=== PATIENT | female | born 1975 ===

== ENCOUNTER 2023-04-11 12:36 | Outpatient (CLI) | payer OTHER, SELFPAY ==
--- NOTE | 2023-04-11 13:00 | CRLHL7_ITS ---
For Patients: As a result of the Century Cures Act, medical imaging exams and procedure reports are released immediately into your electronic medical record. You may view this report before your referring provider. If you have questions, please contact your health care provider. BILATERAL SCREENING MAMMOGRAM WITH COMPUTER-AIDED DETECTION AND TOMOSYNTHESIS TECHNIQUE: CC, MLO and Implant displaced views were obtained. These mammographic images have been obtained using full-field digital technique. These mammographic images were interpreted with the benefit of computer-aided detection. Breast Tomosynthesis was used in this interpretation. COMPARISON FILM: 10/11/21, 09/08/20, 08/31/20. FINDINGS: The breasts are heterogeneously dense, which may obscure small masses IMPRESSION: There is no radiographic evidence for malignancy. ASSESSMENT: BI-RADS Category 2: Benign RECOMMENDATION: Routine screening mammogram in 1 year. A lay language report of this examination will be provided to the patient. Donovan Baird M.D. Diagnostic Radiologist [email or web address] Transcribed: 4:13 p.simin silva/Dictated by: Donovan Baird MD @ 04/12/2023 1:07:00 PM (Electronically Signed)
== END 2023-04-11 12:37 | disposition home or self-care (01) ==
LOC: MAMMO 12:38
PROVIDERS: Visit Provider Obstetrics & Gynecology
DX: Z12.31 Encounter for screening mammogram for malignant neoplasm of breast (principal); R92.2 Inconclusive mammogram
CPT/HCPCS: 77063; 77067

== ENCOUNTER 2024-03-03 13:30 | Outpatient (CLI) | payer OTHER, SELFPAY | END 2024-03-03 13:31 | disposition home or self-care (01) | LOC: NFLDREF 03-20 12:18 | PROVIDERS: Visit Provider Obstetrics & Gynecology | DX: Z83.3 Family history of diabetes mellitus (principal); Z13.220 Encounter for screening for lipoid disorders; Z13.1 Encounter for screening for diabetes mellitus | CPT/HCPCS: 80061; 82947 ==

== ENCOUNTER 2024-06-05 15:02 | Outpatient (CLI) | payer OTHER, SELFPAY ==
--- NOTE | 2024-06-05 15:20 | CRLHL7_ITS ---
For Patients: As a result of the Century Cures Act, medical imaging exams and procedure reports are released immediately into your electronic medical record. You may view this report before your referring provider. If you have questions, please contact your health care provider. BILATERAL SCREENING MAMMOGRAM WITH COMPUTER-AIDED DETECTION AND TOMOSYNTHESIS TECHNIQUE: CC, MLO and Implant displaced views were obtained. These mammographic images have been obtained using full-field digital technique. These mammographic images were interpreted with the benefit of computer-aided detection. Breast Tomosynthesis was used in this interpretation. COMPARISON FILM: 04/11/23, 10/11/21, 08/31/20. FINDINGS: The breasts are heterogeneously dense, which may obscure small masses. IMPRESSION: There is no radiographic evidence for malignancy. ASSESSMENT: BI-RADS Category 2: Benign RECOMMENDATION: Routine screening mammogram in 1 year. A lay language report of this examination will be provided to the patient. Donovan Baird M.D. Diagnostic Radiologist [email or web address] SP/Dictated by: Donovan Baird MD @ 06/06/2024 8:58:00 AM (Electronically Signed)
== END 2024-06-05 15:03 | disposition home or self-care (01) ==
LOC: MAMMO 15:03
PROVIDERS: Visit Provider Obstetrics & Gynecology
DX: Z12.31 Encounter for screening mammogram for malignant neoplasm of breast (principal); R92.2 Inconclusive mammogram
CPT/HCPCS: 77063; 77067

== ENCOUNTER 2025-03-09 13:27 | Outpatient (CLI) | payer OTHER, SELFPAY ==
[2025-03-14 05:33] LABS: HPV Source Cervical; HPV, High Risk by TMA Not Detected
== END 2025-03-09 13:28 | disposition home or self-care (01) ==
PROVIDERS: Visit Provider Obstetrics & Gynecology
DX: Z12.4 Encounter for screening for malignant neoplasm of cervix (principal); Z11.51 Encounter for screening for human papillomavirus (HPV)
CPT/HCPCS: 87624; 87625; 88141; 88142

== ENCOUNTER 2025-06-15 14:51 | Outpatient (CLI) | payer OTHER, SELFPAY ==
--- NOTE | 2025-06-15 15:00 | CRLHL7_ITS ---
For Patients: As a result of the Century Cures Act, medical imaging exams and procedure reports are released immediately into your electronic medical record. You may view this report before your referring provider. If you have questions, please contact your health care provider. INDICATION: BILATERAL SCREENING MAMMOGRAM W/IMPLANTS, ASYMPTOMATIC 49 Y/O FEMALE COMPARISON: 06/05/2024, 04/11/2023, 10/11/2021 TECHNIQUE: Digital mammogram in CC and MLO projections including computer-aided detection (CAD) and tomosynthesis. BREAST COMPOSITION: The breasts are heterogeneously dense, which may obscure small masses. FINDINGS: No suspicious findings. ASSESSMENT: BI-RADS 2 Benign RECOMMENDATION: Annual screening mammogram. A lay language report of this examination will be provided to the patient. Dictated by: Donovan Baird MD @ 06/16/2025 09:36:09 (Electronically Signed)
== END 2025-06-15 14:52 | disposition home or self-care (01) ==
LOC: MAMMO 14:52
PROVIDERS: Visit Provider Obstetrics & Gynecology
DX: R92.333 Mammographic heterogeneous density, bilateral breasts (principal); Z12.31 Encounter for screening mammogram for malignant neoplasm of breast; Z98.82 Breast implant status
CPT/HCPCS: 77063; 77067